=== PATIENT | male | born 1985 | race Caucasian/White ===

== ENCOUNTER 2020-12-25 12:47 | Emergency (ER) | payer OTHER, SELFPAY ==
[2020-12-25 12:50] VITALS: BP 158/96; PULSE 56; RESP 18; TEMP 36.9; O2SAT 99; BMI 32.3
--- NOTE | 2020-12-25 13:06 | XR_ITS ---
PROCEDURE: XR TIBIA FIBULA RT 2V CLINICAL INDICATION: HIT LEG Pain COMPARISON: No exams were available for comparison FINDINGS: No fracture or dislocation. No lytic or blastic change. There is normal mineralization. The joint spaces are well-preserved. No significant degenerative/arthritic changes. No erosive changes evident. Other findings:None. IMPRESSION: No acute findings. Dictated by: Olvin Bridges MD 12/25/2020 13:53 Olvin Bridges MD in [place] 12/25/2020 13:53
--- NOTE | 2020-12-25 13:22 | HMH.EDUTC ---
[facility] [place] Disposition Clinical Impression: Cellulitis Qualifiers: Site of cellulitis: unspecified site Qualified Code(s): L03.90 - Cellulitis, unspecified Disposition: Home, Self-Care Condition on Discharge: Good Instructions: Cellulitis, Trimethoprim/Sulfamethoxazole (Alternative Therapy), Cephalexin, Mupirocin Additional Instructions: *Start antibiotic(s) immediately and be sure to take as ordered for the FULL length of time although you may be feeling better or start to see improvement in the next 24-48 hours *Monitor closely. Outlined redness so that you can monitor easier. Follow up immediately for new or worsening symptoms including but not limited to redness, swelling, streaking from site fever or chills. *Warm compress 15 minutes 3-4 times day *Never squeeze or pop these on your own. Seek immediate medical attention next time this occurs *Monitor Temp. Tylenol every 4 hours as needed and ibuprofen every 6 hours as needed (as long as your primary care doctor has told you that it is ok to take both. For fever, aches, pain. ER if no less that 101 despite Tylenol and ibuprofen Follow up with your family doctor/primary care physician in the next 48-72 hours if no improvement Return if needed Clean area well daily with antibacterial soap and water and pat dry Straight to ER if any life threatening symptoms Prescriptions: Sulfamethoxazole/Trimethoprim [Bactrim DS tablet] 1 each PO BID 7 Days #14 tab Transmission Status: Pending to [facility] cephALEXin [cephALEXin 500mg capsule*] 500 mg PO Q6H 7 Days #28 cap Transmission Status: Pending to [facility] Mupirocin Calcium [Mupirocin 2% Cream 15gm] 1 applicatio TP TID 10 Days #1 tube Transmission Status: Pending to [facility] Referrals: PCP,No [Primary Care Provider] - As needed Forms: Work/School Release Time of Disposition: 13:31 Medical Decision Making - Kyaw Inquiry Pt receiving controlled substance: No Kyaw was queried for this patient: No Vital Signs: 12/25/20 12:50 Temperature 98.4 F Temperature Source Oral Pulse Rate [Right Brachial] 56 L Respiratory Rate 18 Blood Pressure [Right Arm] 158/96 H Blood Pressure Mean [Right Arm] 116 Blood Pressure Source [Right Arm] Automatic Cuff Blood Pressure Position [Right Arm] Sitting 02 Sat by Pulse Oximetry 99 Oxygen Delivery Method Room Air Orders (Tests/Meds): ORDERS Category Date Time Status XR tibia fibula RT 2V Stat Exams 12/25/20 13:06 Ordered - Radiology Data #1 Image(s): Tib/Fib Image Reviewed: Yes I reviewed the patient's radiology results Preliminary Findings: Normal/NAD [facility] [place] HPI - General Stated complaint: wc 12/22/20 possible infection Rt leg Time Seen by Provider: 12/25/20 13:22 Mode of Arrival: Ambulatory Source of Information: Patient Limitations: No Limitations Description of Symptoms (Recalled from Triage Doc. by RN): PATIENT STATES HE HIT HIS RIGHT MIRANDA ON PIECE OF WOOD AT WORK ON FRIDAY. C/O SWELLING AND REDNESS TO AREA HEENT Symptoms (Recalled from RN notes): No Resp Symptoms (Recalled from RN notes): No Skin Symptoms (Recalled from RN notes): No MS Symptoms (Recalled from RN notes): No Functional Status (Recalled from RN notes): WNL - History of Present Illness Provider Complaint: Patient states that he hit his left lower leg area on Friday on a piece of wood and caused small scratch States that ever since he has been having pain, redness swelling and drainage from the area and thinks it may be getting infected State that he hasnt seen anything in the area but was worried when today it drained out some puss so he came in - Related Data Previous Rx's Medication Instructions Recorded Mupirocin Calcium [Mupirocin 2% 1 applicatio TP TID 10 Days #1 tube 12/25/20 Cream 15gm] Sulfamethoxazole/Trimethoprim 1 each PO BID 7 Days #14 tab 12/25/20 [Bactrim DS tablet] cephALEXin [cephALEXin 500mg 500 mg PO Q6H 7 Days #28 cap
[2020-12-25 13:33] VITALS: BP 158/96; PULSE 56; RESP 18; TEMP 36.9; O2SAT 99
== END 2020-12-25 13:35 | disposition home or self-care (01) ==
PROVIDERS: Emergency Provider Nurse Practitioner
DX: L03.115 Cellulitis of right lower limb (principal); W22.8XXA Striking against or struck by other objects, initial encounter; Y92.63 Factory as the place of occurrence of the external cause; Y99.0 Civilian activity done for income or pay
CPT/HCPCS: 73590; 99202; G0463

== ENCOUNTER 2022-03-12 21:10 | Inpatient (IN) | payer OTHER, SELFPAY ==
[2022-03-12] VITALS (9 sets, daily range): BP systolic 107–125; BP diastolic 63–77; PULSE 90–97; RESP 18; TEMP 36.8; O2SAT 92–97; BMI 31.5; BMI 32.1
--- NOTE | 2022-03-12 21:08 | ECG_ITS ---
APPROVED REPORT Exam: Resting ECG HR:95 bpm ECG Measurements Heart Rate 95 AXES KS 148 P 24 QRSd 98 QRS 52 QT 363 T 49 QTc 416 Conclusion SINUS RHYTHM NORMAL ECG UNCONFIRMED REPORT Electronically signed by : Niraj Mosqueda MD 03/14/2022 08:44:19
--- NOTE | 2022-03-12 21:18 | XR_ITS ---
PROCEDURE INFORMATION: Exam: XR Left Shoulder Exam date and time: 03/12/2022 9:38 PM Age: 36 years old Clinical indication: Injury or trauma; Fall; Blunt trauma (contusions or hematomas); Shoulder; Left TECHNIQUE: Imaging protocol: XR Left shoulder. Views: 2 or more views. COMPARISON: CT CERVICAL SPINE WO CON 03/12/2022 9:31 PM FINDINGS: Bones/joints: No acute fracture or dislocation. Soft tissues: Normal. IMPRESSION: No acute fracture or dislocation.
--- NOTE | 2022-03-12 21:18 | CT_ITS ---
PROCEDURE INFORMATION: Exam: CT Head Without Contrast Exam date and time: 03/12/2022 9:29 PM Age: 36 years old Clinical indication: Injury or trauma; Fall; Blunt trauma (contusions or hematomas); Patient HX: Patient had seizure post head scan, during xrays. TECHNIQUE: Imaging protocol: Computed tomography of the head without contrast. Radiation optimization: All CT scans at this facility use at least one of these dose optimization techniques: automated exposure control; mA and/or kV adjustment per patient size (includes targeted exams where dose is matched to clinical indication); or iterative reconstruction. COMPARISON: No relevant prior studies available. FINDINGS: Brain: No intracranial hemorrhage. No mass. No definite edema. Cerebral ventricles: No hydrocephalus. Paranasal sinuses: No acute sinusitis. Mastoid air cells: No significant effusion. Orbital cavities: Unremarkable as visualized. Bones/joints: No acute fracture. Soft tissues: Unremarkable. IMPRESSION: No definite acute intracranial abnormality. If symptoms persist, consider MRI.
--- NOTE | 2022-03-12 21:20 | XR_ITS ---
PROCEDURE INFORMATION: Exam: XR Chest Exam date and time: 03/12/2022 9:41 PM Age: 36 years old Clinical indication: Injury or trauma; Fall; Blunt trauma (contusions or hematomas) TECHNIQUE: Imaging protocol: XR of the chest. Views: 1 view. COMPARISON: CR XR SHOULDER LT MIN 2V 03/12/2022 9:38 PM FINDINGS: Lungs: Unremarkable. No consolidation. Pleural spaces: Unremarkable. No pleural effusion. No pneumothorax. Heart/Mediastinum: Unremarkable. No cardiomegaly. Bones/joints: Unremarkable. IMPRESSION: No acute intrathoracic organ injury.
--- NOTE | 2022-03-12 21:28 | CT_ITS ---
PROCEDURE INFORMATION: Exam: CT Cervical Spine Without Contrast Exam date and time: 03/12/2022 9:31 PM Age: 36 years old Clinical indication: Injury or trauma; Fall; Blunt trauma TECHNIQUE: Imaging protocol: Computed tomography images of the cervical spine without contrast. Radiation optimization: All CT scans at this facility use at least one of these dose optimization techniques: automated exposure control; mA and/or kV adjustment per patient size (includes targeted exams where dose is matched to clinical indication); or iterative reconstruction. COMPARISON: No relevant prior studies available. FINDINGS: Bones/joints: No acute fracture. Normal alignment. Straightening of spine. Discs/Spinal canal/Neural foramina: No significant spinal stenosis. Lungs: Unremarkable as visualized. Soft tissues: Unremarkable. IMPRESSION: No fracture.
--- NOTE | 2022-03-12 21:29 | XR_ITS ---
PROCEDURE INFORMATION: Exam: XR Pelvis Exam date and time: 03/12/2022 9:33 PM Age: 36 years old Clinical indication: Injury or trauma; Fall; Blunt trauma (contusions or hematomas); Does not apply; Pelvic region TECHNIQUE: Imaging protocol: XR pelvis. Views: 1 or 2 view. COMPARISON: No relevant prior studies available. FINDINGS: Bones/joints: No acute fracture or dislocation. Soft tissues: Unremarkable. IMPRESSION: No acute fracture or dislocation.
[2022-03-12 21:33] LABS: Microscopic, Urine URINE MICROSCOPIC (MICROSCOPIC)
[2022-03-12 21:39] LABS: Appearance,Urine CLEAR (Clear); Bilirubin,Urine Negative (Negative); Blood, Urine Negative (Negative); Color,Urine YELLOW (Yellow); Glucose,Urine (UA) Negative (Negative); Ketones,Urine Negative (Negative); Leukocyte Esterase,Urine Negative (Negative); Nitrate,Urine Negative (Negative); Protein,Urine TRACE (Negative); Urobilinogen,Urine 0.2 EU/dl (0.2)
[2022-03-12 21:42] LABS: Alanine Aminotransferase 45 U/L (12-78); Albumin Level 4.3 g/dl (3.5-5.0); Albumin/Globulin Ratio 1.7 (1.1-1.8); Alkaline Phosphatase 82 U/L (38-126); Anion Gap 17.6 mEq/L (5-15); Aspartate Amino Transferase 36 U/L (17-59); Blood Urea Nitrogen 11 mg/dl (9-20); Carbon Dioxide 23 mmol/L (22.0-30.0); Chloride 106 mmol/L (98-107); Creatinine Clearance Estimated 183 mL/min (50-200); Estimated Glomerular Filt Rate 109 ml/min (>60); GFR (African American) 132 ML/MIN (>60); Globulin 2.6 g/dL (1.3-3.2); Glucose 142 mg/dl (74-100); Potassium 3.6 mmoL/L (3.5-5.1); Sodium 143 mmol/L (136-145); Total Protein,Serum 6.9 g/dl (6.3-8.2)
[2022-03-12 21:43] LABS: Acetaminophen < 10 ug/ml (10-30); Bilirubin,Total < 0.1 mg/dl (0.2-1.3); Salicylate < 1.0 mg/dL (2.0-20.0)
[2022-03-12 21:44] LABS: Ethyl Alcohol < 10 mg/dl (0-10)
--- NOTE | 2022-03-12 21:46 | HMH.EDSYNC ---
ED Disposition Clinical Impression: New onset seizure, Primary hypertension, Obesity (BMI 30-39.9), Tobacco use Disposition: Admitted As Inpatient Condition on Discharge: Good - Critical Care Critical Care Time: No Attestation: On 03/12/22, the high probability of a clinically significant, sudden or life threatening deterioration of the following system(s) required my full and direct attention, intervention and personal management. The time I documented below is in addition to time spent performing reported procedures but includes the following listed in this critical care notation. Medical Decision Making - Medical Records Medical records reviewed: Yes: I reviewed the patient's medical records. - Kyaw Inquiry Pt receiving controlled substance: No Vital Signs: 03/12/22 21:12 03/12/22 21:21 Temperature 98.2 F Temperature Source Oral Pulse Rate [Apical] 96 H Pulse Rate [Orthostatic Lying] 90 Pulse Rate [Orthostatic Sitting] 92 H Pulse Rate [Orthostatic Standing] 97 H Respiratory Rate 18 Blood Pressure [Orthostatic Lying Right Arm] 114/74 Blood Pressure [Orthostatic Sitting] 113/73 Blood Pressure [Orthostatic Standing] 107/74 L Blood Pressure [Right Arm] 125/77 Blood Pressure Mean [Right Arm] 93 Blood Pressure Source [Right Arm] Automatic Cuff Blood Pressure Position [Right Arm] Sitting 02 Sat by Pulse Oximetry 92 L Oxygen Delivery Method Room Air - Lab Data Lab results reviewed: Yes: I reviewed the patient's lab results. Lab Results 03/12/22 21:14: WBC 13.5 H, RBC 5.25, Hgb 15.1, Hct 45.9, MCV 87.3, MCH 28.7, MCHC 32.9, RDW 14.1, Plt Count 290, MPV 9.6, Neut % (Auto) 43.8, Lymph % (Auto) 45.1, [place] % (Auto) 6.8, Eos % (Auto) 2.0, Baso % (Auto) 2.3 H, Neut # (Auto) 5.9, Lymph # (Auto) 6.1 H, [place] # (Auto) 0.9, Eos # (Auto) 0.3, Baso # (Auto) 0.3 H 03/12/22 21:14: Sodium 143, Potassium 3.6, Chloride 106, Carbon Dioxide 23, Anion Gap 17.6 H, BUN 11, Creatinine 0.80, Estimated Creat Clear 183, Estimated GFR 109, Est GFR ( Amer) 132, Glucose 142 H, Calcium 9.0, Total Bilirubin < 0.1 L, AST 36, ALT 45, Alkaline Phosphatase 82, Troponin I < 0.01, C-Reactive Protein 1.0, Total Protein 6.9, Albumin 4.3, Globulin 2.6, Albumin/Globulin Ratio 1.7, Procalcitonin 0.048, Salicylates < 1.0 L, Acetaminophen < 10 L 03/12/22 21:14: Plasma/Serum Alcohol < 10 03/12/22 21:26: Urine Color Yellow, Urine Appearance Clear, Urine pH 6.0, Ur Specific [place] 1.020, Urine Protein Trace, Urine Glucose (UA) Negative, Urine Ketones Negative, Urine Blood Negative, Urine Nitrate Negative, Urine Bilirubin Negative, Urine Urobilinogen 0.2, Ur Leukocyte Esterase Negative, Urine RBC None, Urine WBC Occasional, Ur Squamous Epith Cells Occasional, Urine Bacteria None 03/12/22 21:26: Urine Opiates Screen Negative, Urine Methadone Screen Negative, Ur Barbituates Screen Negative, Ur Phencyclidine Scrn Negative, Ur Amphetamines Screen Negative, U Benzodiazepines Scrn Negative, Urine Cocaine Screen Negative, U Marijuana (THC) Screen Negative 03/12/22 22:04: Lactate 13.8 H 03/12/22 22:04: SARS-CoV-2 (PCR) Not detected, Influenza A Untype (PCR) Not detected, Influenza Type B (PCR) Not detected Result diagrams: 03/12/22 21:14 03/12/22 21:14 Orders (Tests/Meds): ED MEDICATIONS Generic Name Dose Route Start Last Admin Trade Name Freq PRN Reason Stop Dose Admin Sodium Chloride 1,000 mls @ 999 mls/hr 03/12/22 21:30 03/12/22 21:25 Sod Chlor 0.9% 1000ml Bag IV 03/12/22 22:30 999 mls/hr .Q1H1M VIRGILIO Administration Sodium Chloride 10 ml 03/12/22 22:02 Sodium Chloride 0.9% 10ml Vial IV 04/11/22 22:01 NEEDED PRN to Dilute Lorazepam inj Discontinued Medications Generic Name Dose Route Start Last Admin Trade Name Freq PRN Reason Stop Dose Admin Levetiracetam 1,500 mg/ Sodium 115 mls @ 230 mls/hr 03/12/22 22:00 03/12/22 22:14 Chloride IV 03/12/22 22:01 230 mls/hr ONCE ONE Administration Lorazep
[2022-03-12 21:50] LABS: Barbiturates Screen,Urine Negative ng/ml (<200); Benzodiazepines Screen,Urine Negative ng/ml (<200)
[2022-03-12 21:51] LABS: Amphetamine/Metha Screen,Urine Negative ng/ml (<1000); Cannabinoid Screen,Urine Negative ng/ml (<50)
[2022-03-12 21:52] LABS: Cocaine Screen,Urine Negative ng/ml (<300)
[2022-03-12 21:53] LABS: Methadone Screen,Urine Negative ng/ml (<300); Opiate Screen,Urine Negative ng/ml (<300)
[2022-03-12 21:54] LABS: Phencyclidine Screen,Urine Negative ng/ml (<25)
[2022-03-12 21:55] LABS: Troponin I < 0.01 ng/ml (0.00-0.034)
[2022-03-12 21:57] LABS: Squamous Epithelial Cell,Urine Occasional #/hpf (0-5); WBC,Urine Occasional #/hpf (0-3)
[2022-03-12 21:58] LABS: Procalcitonin 0.048 ng/mL (0.0-2.0)
--- NOTE | 2022-03-12 21:59 | PC.NURSE ---
Addendum entered by Anika Knutson RN 03/12/22 22:33: s/w Hanna Original Note: Called [facility]-watch for Keppra IV loading dose
[2022-03-12 22:07] LABS: Basophils # 0.3 K/mm3 (0-0.2); Basophils % 2.3 % (0.1-2.0); Eosinophils # 0.3 K/mm3 (0.0-0.4); Hematocrit 45.9 % (42.0-52.0); Hemoglobin 15.1 g/dL (14.1-18.0); Lymphocytes # 6.1 K/mm3 (0.7-4.5); Lymphocytes % 45.1 % (10-50); Mean Corpuscular HGB Conc 32.9 g/dL (31.8-35.4); Mean Corpuscular Hemoglobin 28.7 pg (27.0-31.2); Mean Corpuscular Volume 87.3 fl (80-94); Mean Platelet Volume 9.6 fl (7.4-10.4); Monocytes # 0.9 K/mm3 (0.1-1.0); Monocytes % 6.8 % (1.7-9.3); Neutrophils # 5.9 K/mm3 (1.8-7.8); Neutrophils % 43.8 % (37.0-80.0); Platelet Count 290 K/mm3 (142-424); Red Blood Count 5.25 M/mm3 (4.60-6.20); Red Cell Distribution Width 14.1 % (11.5-17.5); White Blood Count 13.5 K/mm3 (4.8-10.8)
--- NOTE | 2022-03-12 22:09 | PC.NURSE ---
NASAL SWAB OBTAINED AND SENT TO LAB. PT TOLERATED WELL. PT UPDATED. ATTEMPTED TO CALL PATIENT FAMILY BACK. THEY WERE NOT LOCATED IN [facility].
[2022-03-12 22:13] LABS: Coronavirus 19, PCR Not Detected (NotDetected); Influenza A, PCR Not Detected (NotDetected); Influenza B, PCR Not Detected (NotDetected)
--- NOTE | 2022-03-12 22:28 | PC.NURSE ---
Attempted to call with phone number in computer is invalid. Pt attempted to call from his cell, no response. s/w pt about admission, he agrees. OK to remove sil.
[2022-03-12 22:32] LABS: Lactic Acid 13.8 mmol/L (0.7-2.1)
--- NOTE | 2022-03-12 22:34 | PC.NURSE ---
Critical report give to Dr. Adorno, Lactic 13.8
--- NOTE | 2022-03-12 22:35 | PC.NURSE ---
@ 215 - radiology called for help in XR room. This RN and Naif Lou RN, Edyta Anna RN to room immediately. Pt was having tonic-clonic seizure, and turned him on his side. He began to settle down from the seizure and into post ictal phase. @215 MD at bedside. Pt now was responsive to name and Oriented to person and place. Pt had bit his tongue, oral care provided. Completed XRays and transferred to stretcher and assisted pt back to room. Seizure pads placed on bed-rails. 2nd IV to RFA. @220 16fr Lund placed.
[2022-03-12 22:57] LABS: Erythrocyte Sedimentation Rate 6 mm/hr (0-15)
--- NOTE | 2022-03-12 23:06 | PC.NURSE ---
pt arrived to floor via stretcher at this time
[2022-03-13] VITALS: BP 131/81; PULSE 76; RESP 16; TEMP 36.4; O2SAT 97
[2022-03-13 01:41] LABS: Reflex Lactic Add Lactic Reflex
[2022-03-13 02:12] LABS: Lactic Acid Follow Up (RFLX 1) 1.6 mmol/L (0.7-2.1)
[2022-03-13 04:00] VITALS: BP 96/60; PULSE 80; PULSE 81; RESP 17; O2SAT 95
[2022-03-13 06:36] LABS: Alanine Aminotransferase 30 U/L (12-78); Albumin Level 3.6 g/dl (3.5-5.0); Albumin/Globulin Ratio 1.7 (1.1-1.8); Alkaline Phosphatase 65 U/L (38-126); Anion Gap 10.8 mEq/L (5-15); Aspartate Amino Transferase 28 U/L (17-59); Blood Urea Nitrogen 10 mg/dl (9-20); Calcium 8.5 mg/dl (8.4-10.2); Carbon Dioxide 25 mmol/L (22.0-30.0); Chloride 109 mmol/L (98-107); Creatinine Clearance Estimated 249 mL/min (50-200); Estimated Glomerular Filt Rate 152 ml/min (>60); GFR (African American) 183 ML/MIN (>60); Globulin 2.1 g/dL (1.3-3.2); Glucose 101 mg/dl (74-100); Magnesium 2.2 mg/dl (1.6-2.3); Potassium 3.8 mmoL/L (3.5-5.1); Sodium 141 mmol/L (136-145); Total Protein,Serum 5.7 g/dl (6.3-8.2)
[2022-03-13 06:53] LABS: Bilirubin,Total < 0.1 mg/dl (0.2-1.3)
--- NOTE | 2022-03-13 07:47 | P.CONPHA_ITS ---
[facility] Pharmacy VTE Monitoring - Patient Demographics Admission date: 03/13/22 Report Date: 03/13/22 Time: 07:47 Allergies/Adverse Reactions: Patient Allergies No Known Allergies Allergy (Verified 08/10/21 14:42) Height: 1.8 m Weight: 104.496 kg Patient Problems: Current Active Problems New onset seizure (Acute) Obesity (BMI 30-39.9) (Acute) Tobacco use (Acute) Primary hypertension (Acute) - VTE Risk Labs: VTE Related Lab Results Hgb 15.1 g/dL (14.1-18.0) 03/12/22 21:14 Hct 45.9 % (42.0-52.0) 03/12/22 21:14 Plt Count 290 K/mm3 (142-424) 03/12/22 21:14 BUN 10 mg/dl (9-20) 03/13/22 05:03 Creatinine 0.60 mg/dl (0.66-1.25) L D 03/13/22 05:03 Estimated Creat Clear 249 mL/min (50-200) 03/13/22 05:03 Clinical Trial Participant: No - Prophylaxis VTE Prophylaxis Ordered?: Yes Types of VTE Prophylaxis: TEDS Knee High
[2022-03-13 08:00] VITALS: BP 135/84; PULSE 88; RESP 17; TEMP 36.8; O2SAT 98
--- NOTE | 2022-03-13 08:49 | PC.NURSE ---
797 of LR documented in I's & O's is total since admission up until this am
--- NOTE | 2022-03-13 09:52 | HMH.HPDC ---
General - General Admission date:: 03/12/22 Discharge date: 03/13/22 *Admission Date: 03/13/22 *Chief complaint: Seizure *History of present illness: 37-year-old male patient presented to the [facility] emergency department with reports of going on to his backyard and family tonight, he denies any headache dizziness, or nausea/vomiting. While in the emergency department he also had a witnessed tonic-clonic seizure with tongue biting and urinary incontinence. He denies any history of seizures, denies any contact with illness, no fever/chills/body aches, or any trauma recently. [facility] History I have reviewed the patient's past medical history: Yes Medical History: Reports:: Hypertension *Have you ever received a pneumonia vaccine?: No *Have you received a flu vaccine this season?: No - *Social History Smoking Status: Current every day smoker Tobacco Type: cigarettes, smokeless tobacco # Packs/Day (cigarettes): 1 Alcohol Intake: never Substance Use Type: denies use *Occupational Status:: employed *Travel in the last 8 weeks: None Family Hx:: Unable to obtain Review of Systems - Review of Systems Review of systems:: pertinent systems reviewed and negative unless documented below - Constitutional Denies anorexia, Denies fatigue, Denies headache(s) - Eyes Denies blurry vision, Denies double vision - ENT Denies dizziness, Denies difficulty swallowing - *Cardiovascular Denies chest pain, Denies shortness of breath - *Respiratory Denies chest congestion, Denies shortness of breath - *Gastrointestinal Denies abdominal pain, Denies change in stools - *Musculoskeletal Denies abnormal walking, Denies decreased muscle mass - Integumentary/Breasts Denies yellowing of the skin, Denies lesions - *Neurologic Reports seizure-like activity, Denies abnormal speech, Denies localized weakness - Psychiatric Denies abnormal sleep pattern, Denies hearing things others do not hear - Endocrine Denies cold intolerance, Denies excessive sweating - Hematologic/Lymphatic Denies easy bleeding, Denies easy bruising - Allergic/Immunologic Denies GI upset with certain foods, Denies wheezing Exam Vital signs and Labs for Last 24 Hours: Temp Pulse Resp BP Pulse Ox 98.3 F 88 17 135/84 98 03/13/22 08:00 03/13/22 08:00 03/13/22 08:00 03/13/22 08:00 03/13/22 08:00 Laboratory Results - last 24 hr 03/12/22 21:14: WBC 13.5 H, RBC 5.25, Hgb 15.1, Hct 45.9, MCV 87.3, MCH 28.7, MCHC 32.9, RDW 14.1, Plt Count 290, MPV 9.6, Neut % (Auto) 43.8, Lymph % (Auto) 45.1, [place] % (Auto) 6.8, Eos % (Auto) 2.0, Baso % (Auto) 2.3 H, Neut # (Auto) 5.9, Lymph # (Auto) 6.1 H, [place] # (Auto) 0.9, Eos # (Auto) 0.3, Baso # (Auto) 0.3 H, ESR 6 03/12/22 21:14: Sodium 143, Potassium 3.6, Chloride 106, Carbon Dioxide 23, Anion Gap 17.6 H, BUN 11, Creatinine 0.80, Estimated Creat Clear 183, Estimated GFR 109, Est GFR ( Amer) 132, Glucose 142 H, Calcium 9.0, Total Bilirubin < 0.1 L, AST 36, ALT 45, Alkaline Phosphatase 82, Troponin I < 0.01, C-Reactive Protein 1.0, Total Protein 6.9, Albumin 4.3, Globulin 2.6, Albumin/Globulin Ratio 1.7, Procalcitonin 0.048, Salicylates < 1.0 L, Acetaminophen < 10 L 03/12/22 21:14: Plasma/Serum Alcohol < 10 03/12/22 21:26: Urine Color Yellow, Urine Appearance Clear, Urine pH 6.0, Ur Specific [place] 1.020, Urine Protein Trace, Urine Glucose (UA) Negative, Urine Ketones Negative, Urine Blood Negative, Urine Nitrate Negative, Urine Bilirubin Negative, Urine Urobilinogen 0.2, Ur Leukocyte Esterase Negative, Urine RBC None, Urine WBC Occasional, Ur Squamous Epith Cells Occasional, Urine Bacteria None 03/12/22 21:26: Urine Opiates Screen Negative, Urine Methadone Screen Negative, Ur Barbituates Screen Negative, Ur Phencyclidine Scrn Negative, Ur Amphetamines Screen Negative, U Benzodiazepines Scrn Negative, Urine Cocaine Screen Negative, U Marijuana (THC) Screen Negative 03/12/22 22:04: Lactate 13.8 H
[2022-03-13 11:27] VITALS: BP 110/75; PULSE 75; RESP 18; TEMP 36.9; O2SAT 99
--- NOTE | 2022-03-14 14:34 | CARE MANAGER ---
Called and spoke with Mohit to discuss post discharge status. He states that he is sore, but doing ok. He informed me that he rescheduled his appointment for tomorrow to see Dr. Chacko. I instructed him that it is very important that he f/u with neuro r/t new seizures. Dr. Adorno's office notified of this information.
== END 2022-03-13 14:09 | disposition home or self-care (01) | DRG 101 ==
LOC: ER 21:54 → 2ND 22:37
PROVIDERS: Admitting Provider Emergency Medicine; Emergency Provider Emergency Medicine; PCP Emergency Medicine; Visit Provider Emergency Medicine
DX: R56.9 Unspecified convulsions (principal); E66.9 Obesity, unspecified; F17.210 Nicotine dependence, cigarettes, uncomplicated; F17.290 Nicotine dependence, other tobacco product, uncomplicated; I10 Essential (primary) hypertension; Z68.32 Body mass index [BMI] 32.0-32.9, adult; Z20.822 Contact with and (suspected) exposure to COVID-19
CPT/HCPCS: 36415; 51702; 70450; 71045; 72125; 72170; 73030; 80053; 80305; 80329; 81001; 83605; 83735; 84145; 84484; 85025; 85651; 86140; 87040; 87102; 87206; 93005; 99285; C9803; J1953; U0003; U0005

== ENCOUNTER 2022-06-15 21:42 | Emergency (ER) | payer SELFPAY ==
[2022-06-15 21:24] VITALS: BP 119/77; PULSE 94; RESP 18; TEMP 36.6; O2SAT 99; BMI 32.9
--- NOTE | 2022-06-15 21:30 | PC.NURSE ---
SEIZURE PADS ORDERED
[2022-06-15 21:36] LABS: Basophils # 0.2 K/mm3 (0-0.2); Basophils % 1.1 % (0.1-2.0); Eosinophils # 0.3 K/mm3 (0.0-0.4); Eosinophils % 1.7 % (0.1-12.0); Hematocrit 47.6 % (42.0-52.0); Hemoglobin 15.2 g/dL (14.1-18.0); Lymphocytes % 34.7 % (10-50); Mean Corpuscular Hemoglobin 27.6 pg (27.0-31.2); Mean Corpuscular Volume 86.5 fl (80-94); Mean Platelet Volume 8.6 fl (7.4-10.4); Monocytes # 0.7 K/mm3 (0.1-1.0); Neutrophils # 8.3 K/mm3 (1.8-7.8); Neutrophils % 57.4 % (37.0-80.0); Platelet Count 316 K/mm3 (142-424); White Blood Count 14.4 K/mm3 (4.8-10.8)
[2022-06-15 21:39] LABS: Microscopic, Urine URINE MICROSCOPIC (MICROSCOPIC)
[2022-06-15 21:40] LABS: Appearance,Urine CLEAR (Clear); Bilirubin,Urine Negative (Negative); Blood, Urine Negative (Negative); Color,Urine YELLOW (Yellow); Glucose,Urine (UA) Negative (Negative); Ketones,Urine Negative (Negative); Leukocyte Esterase,Urine Negative (Negative); Nitrate,Urine Negative (Negative); Protein,Urine TRACE (Negative); Specific Gravity, Urine >= 1.030 (1.005-1.030); Urobilinogen,Urine 0.2 EU/dl (0.2)
[2022-06-15 21:42] LABS: Amorphous Sediment,Urine Trace /lpf; Mucus,Urine 1+ /lpf
[2022-06-15 21:43] LABS: Anion Gap 20.5 mEq/L (5-15); Blood Urea Nitrogen 16 mg/dl (9-20); Calcium 8.5 mg/dl (8.4-10.2); Carbon Dioxide 19 mmol/L (22.0-30.0); Chloride 106 mmol/L (98-107); Creatinine Clearance Estimated 152 mL/min (50-200); Estimated Glomerular Filt Rate 84 ml/min (>60); GFR (African American) 101 ML/MIN (>60); Glucose 135 mg/dl (74-100); Potassium 3.5 mmoL/L (3.5-5.1); Sodium 142 mmol/L (136-145)
[2022-06-15 21:48] LABS: C-Reactive Protein 2.2 mg/L (0-4)
--- NOTE | 2022-06-15 21:52 | HMH.EDSEIZ ---
ED Disposition Clinical Impression: Epileptic seizure Qualifiers: Epilepsy type: unspecified Intractability: not intractable Status epilepticus: without status epilepticus Qualified Code(s): G40.909 - Epilepsy, unspecified, not intractable, without status epilepticus Disposition: Home, Self-Care Condition on Discharge: Good Instructions: DI for Seizure Disorder -- Adult Additional Instructions: call pcp for follow up and neuro and take meds Referrals: Provider,MD Jose [Referring] - Estefanía Chacko MD [Staff Physician] - - Critical Care Critical Care Time: No Attestation: On 06/15/22, the high probability of a clinically significant, sudden or life threatening deterioration of the following system(s) required my full and direct attention, intervention and personal management. The time I documented below is in addition to time spent performing reported procedures but includes the following listed in this critical care notation. Medical Decision Making - Medical Records Medical records reviewed: Yes: I reviewed the patient's medical records. - Kyaw Inquiry Pt receiving controlled substance: No Vital Signs: 06/15/22 21:24 06/15/22 22:00 06/15/22 22:30 Temperature 98 F Temperature Source Oral Pulse Rate 89 81 Pulse Rate [Apical] 94 H Respiratory Rate 18 Blood Pressure 123/77 117/70 Blood Pressure [Right Arm] 119/77 Blood Pressure Mean [Right Arm] 91 Blood Pressure Source [Right Arm] Automatic Cuff Blood Pressure Position [Right Arm] Sitting 02 Sat by Pulse Oximetry 99 92 L 95 Oxygen Delivery Method Room Air Room Air Room Air 06/15/22 23:00 Temperature Temperature Source Pulse Rate 81 Pulse Rate [Apical] Respiratory Rate Blood Pressure 115/70 Blood Pressure [Right Arm] Blood Pressure Mean [Right Arm] Blood Pressure Source [Right Arm] Blood Pressure Position [Right Arm] 02 Sat by Pulse Oximetry 94 L Oxygen Delivery Method Room Air - Lab Data Lab results reviewed: Yes: I reviewed the patient's lab results. Lab Results 06/15/22 21:30: WBC 14.4 H, RBC 5.50, Hgb 15.2, Hct 47.6, MCV 86.5, MCH 27.6, MCHC 32.0, RDW 14.0, Plt Count 316, MPV 8.6, Neut % (Auto) 57.4, Lymph % (Auto) 34.7, [place] % (Auto) 5.0, Eos % (Auto) 1.7, Baso % (Auto) 1.1, Neut # (Auto) 8.3 H, Lymph # (Auto) 5.0 H, [place] # (Auto) 0.7, Eos # (Auto) 0.3, Baso # (Auto) 0.2, ESR 3 06/15/22 21:30: Sodium 142, Potassium 3.5, Chloride 106, Carbon Dioxide 19 L, Anion Gap 20.5 H, BUN 16, Creatinine 1.00, Estimated Creat Clear 152, Estimated GFR 84, Est GFR ( Amer) 101, Glucose 135 H, Calcium 8.5, C-Reactive Protein 2.2, Procalcitonin 0.055 06/15/22 21:35: Urine Color Yellow, Urine Appearance Clear, Urine pH 6.0, Ur Specific [place] >= 1.030, Urine Protein Trace, Urine Glucose (UA) Negative, Urine Ketones Negative, Urine Blood Negative, Urine Nitrate Negative, Urine Bilirubin Negative, Urine Urobilinogen 0.2, Ur Leukocyte Esterase Negative, Amorphous Sediment Trace, Urine Mucus 1+ Result diagrams: 06/15/22 21:30 06/15/22 21:30 Orders (Tests/Meds): ED MEDICATIONS Generic Name Dose Route Start Last Admin Trade Name Freq PRN Reason Stop Dose Admin Sodium Chloride 1,000 mls @ 999 mls/hr 06/15/22 21:30 06/15/22 21:38 Sod Chlor 0.9% 1000ml Bag IV 06/15/22 22:30 999 mls/hr .Q1H1M VIRGILIO Administration Discontinued Medications Generic Name Dose Route Start Last Admin Trade Name Freq PRN Reason Stop Dose Admin Levetiracetam 2,000 mg/ Sodium 120 mls @ 220 mls/hr 06/15/22 21:45 06/15/22 22:38 Chloride IV 06/15/22 22:17 220 mls/hr ONCE ONE Administration Miscellaneous 0 each 06/15/22 21:30 06/15/22 21:38 Pharmacy Consult Request NOTAPPLIC 06/15/22 21:31 1 each ONCE ONE Administration ORDERS Category Date Time Status Levetiracetam (Keppra) Stat Lab 06/15/22 21:30 Received Medical Decision Narrative: has known sz disorder but not compliant with meds - discussed
[2022-06-15 21:59] LABS: Erythrocyte Sedimentation Rate 3 mm/hr (0-15)
[2022-06-15 22:00] VITALS: BP 123/77; PULSE 89; O2SAT 92
[2022-06-15 22:01] LABS: Procalcitonin 0.055 ng/mL (0.0-2.0)
[2022-06-15 22:30] VITALS: BP 117/70; PULSE 81; O2SAT 95
[2022-06-15 23:00] VITALS: BP 115/70; PULSE 81; O2SAT 94
[2022-06-15 23:36] VITALS: BP 116/74; PULSE 84; RESP 16; TEMP 36.6; O2SAT 95
[2022-06-19 17:58] LABS: Levetiracetam (Keppra) <1.0 ug/mL (10.0-40.0)
== END 2022-06-15 23:37 | disposition home or self-care (01) ==
PROVIDERS: Emergency Provider Emergency Medicine; PCP Emergency Medicine
DX: G40.909 Epilepsy, unspecified, not intractable, without status epilepticus (principal)
CPT/HCPCS: 80048; 80177; 81001; 84145; 85025; 85651; 86140; 96365; 99284; J1953